=== PATIENT | female | born 1970 | race Caucasian/White ===

== ENCOUNTER 2021-10-31 17:51 | Emergency (ER) | payer OTHER ==
[~2021-10-31] VITALS: Ht 157.5 cm; Wt 56.7 kg
[2021-10-31 18:00] VITALS: BP_SYST 126
--- NOTE | 2021-10-31 18:00 | NUR ---
Pt to remain in the ER lobby until ER bed becomes available.
--- NOTE | 2021-10-31 18:33 | NUR ---
Patient to ER bed 6 to gown for evaluation. Side rails up. Report given to ALFREDA WHITFIELD.
--- NOTE | 2021-10-31 18:52 | NUR ---
URINE SENT TO LAB, HCG TEST NEGATIVE
--- NOTE | 2021-10-31 18:54 | NUR ---
PT CAME IN FROM HOME C/O INTERMITTANT ABD PAIN X 20 YEARS, STATES SHE HAS BEEN SEEING A GI SPECIALIST BUT DOES NOT BELIEVE SHE IS GETTING THE RIGHT TREATMENT. DENIES TAKING ANY MEDICATIONS. PT IS AMBULATORY, AAOX4, VSS
--- NOTE | 2021-10-31 19:10 | NUR ---
REPORT GIVEN TO NAHID TURNER
[2021-10-31 19:13] LABS: BILIRUBIN,URINE NEGATIVE (NEGATIVE); BLOOD, URINE NEGATIVE (NEGATIVE); CLARITY/URINE CLEAR (CLEAR); COLOR,URINE YELLOW (YELLOW); GLUCOSE,URINE NEGATIVE (NEGATIVE); KETONES,URINE NEGATIVE (NEGATIVE); LEUKOCYTE ESTERASE ,URINE TRACE (NEGATIVE); NITRITE, URINE NEGATIVE (NEGATIVE); PH,URINE 5.5 (5.0-8.0); PROTEIN URINE NEGATIVE (NEGATIVE); UROBILINOGEN,URINE 0.2 (0.2-1.0)
[2021-10-31 19:21] LABS: BACTERIA,URINE FEW /HPF (None Seen); RBC,URINE 0-3 /HPF (0-3)
[2021-10-31 19:22] LABS: MUCUS,URINE None Seen /LPF (None Seen)
[2021-10-31 19:44] LABS: HEMOGLOBIN 14.4 g/dL (12.0-16.0); MEAN CORPUSCULAR HEMOGLOBIN 31 pg (27-31)
[2021-10-31 19:48] LABS: BASOPHILS % (AUTO) 0.6 % (0.0-2.0); EOSINOPHILS # (AUTO) 0.2 K/uL (0.0-0.4); EOSINOPHILS % (AUTO) 3.4 % (0.0-4.0); HEMATOCRIT 42.3 % (36-48); LYMPHOCYTES # (AUTO) 2.3 K/uL (1.0-5.5); LYMPHOCYTES % (AUTO) 35.7 % (20.5-51.5); MEAN CORPUSCULAR HGB CONC 34 % (32-36); MEAN CORPUSCULAR VOLUME 92 fL (79.0-98.0); MONOCYTES # (AUTO) 0.5 K/uL (0.0-1.0); MONOCYTES % (AUTO) 7.8 % (1.7-9.3); NEUTROPHILS # (AUTO) 3.3 K/uL (1.8-7.7); NEUTROPHILS % (AUTO) 52.5 % (40.0-70.0); PLATELET COUNT (AUTO) 248 K/uL (130-430); RED BLOOD CELL COUNT(AUTO) 4.61 MIL/uL (4.2-6.2); RED CELL DISTRIBUTION WIDTH 12.3 % (9.0-15.0); WHITE BLOOD COUNT (AUTO) 6.4 K/uL (4.8-10.8)
[2021-10-31 19:49] LABS: CALCIUM 8.9 mg/dL (8.4-11.0); CREATININE 0.94 mg/dL (0.55-1.30); POTASSIUM 3.7 mmol/L (3.5-5.1)
--- NOTE | 2021-10-31 19:51 | NUR ---
IV INSERTION 22G L AC
[2021-10-31 19:58] LABS: ALBUMIN 3.7 g/dL (3.4-4.8); TOTAL BILIRUBIN 0.1 mg/dL (0.0-1.0)
[2021-10-31] MEDS ORDERED: FAMO20TA8 PO (21:59)
[2021-10-31] MEDS ORDERED: OMEP20TA20 PO (21:59)
[2021-10-31] MEDS ORDERED: SUCR1TAB78 PO (21:59)
[2021-10-31] MEDS ORDERED: PANTOPRAZOLE SODIUM 40 MG TAB PO ONE (22:00)
[2021-10-31] MEDS ORDERED: MAG HYDROX/AL HYDROX/SIMETH 30 ML, DICYCLOMINE HCL 20 MG, LIDOCAINE VISCOUS 2% 15ML (PO... PO ONE ×3 (22:00)
[2021-10-31 22:45] VITALS: BP_SYST 126
--- NOTE | 2021-10-31 22:46 | NUR ---
Patient given written and verbal discharge instructions and verbalizes understanding. ER MD discussed with patient the results and treatment provided. Patient in stable condition. ID arm band removed. IV catheter removed intact and dressing applied, no active bleeding. Rx of Pepcid, omeprazole and carafate given. Patient educated on pain management and to follow up with PMD. Pain Scale 0/10. Opportunity for questions provided and answered. Medication side effect fact sheet provided.
== END 2021-10-31 22:45 | disposition home or self-care (01) ==
LOC: SED 17:51
DX: K29.70 Gastritis, unspecified, without bleeding (principal); K59.00 Constipation, unspecified; R03.0 Elevated blood-pressure reading, without diagnosis of hypertension
CPT/HCPCS: 36415; 74176; 76376; 80053; 81000; 81025; 83690; 85025; 87086; 99284; J2001